=== PATIENT | female | born 1990 | race Caucasian/White ===

== ENCOUNTER 2019-02-12 09:23 | Inpatient (IN) | payer MEDICAID ==
[2019-02-12] MEDS ORDERED: CARBOPROST 250 MCG INJ IM (11:30)
[2019-02-12] MEDS ORDERED: MISOPROSTOL 200 MCG TAB PR (11:30)
[2019-02-12] MEDS ORDERED: OXYTOCIN 30 UNITS/LR 500 ML IV (11:30)
[2019-02-12] MEDS ORDERED: BUTORPHANOL 2 MG INJ IV (11:30)
[2019-02-12 12:43] LABS: ADD MAN DIFF? NO
[2019-02-12 12:51] LABS: WHITE BLOOD COUNT 8.8 10^3/ul (4.8-10.8)
[2019-02-12 12:51] LABS: BASOPHILS % 0.2 % (0.0-2.0); EOSINOPHILS % 0.1 % (0.0-7.0); HEMATOCRIT 37.3 % (37.0-47.0); HEMOGLOBIN 12.8 g/dl (12.0-16.0); LYMPHOCYTES # 1.9 10^3/ul (0.8-2.9); LYMPHOCYTES % 21.9 % (15.0-51.0); MEAN CORPUSCULAR HEMOGLOBIN 30.4 pg (29.0-33.0); MEAN CORPUSCULAR HGB CONC 34.3 g/dl (32.0-37.0); MEAN CORPUSCULAR VOLUME 88.6 fl (82.0-101.0); MEAN PLATELET VOLUME 11.2 fl (7.4-10.4); MONOCYTE # 0.5 10^3/ul (0.3-0.9); MONOCYTES % 5.9 % (0.0-11.0); NEUTROPHIL # 6.3 10^3/ul (1.6-7.5); NEUTROPHILS % 71.2 % (39.0-77.0); PLATELET COUNT 207 10^3/UL (140-415); RED BLOOD COUNT 4.21 10^6/ul (4.20-5.40); RED CELL DISTRIBUTION WIDTH 13.5 % (11.5-14.5)
[2019-02-12] MEDS: LACTATED RINGER'S 1,000 ML IV ×2 (12:52→21:21)
[2019-02-12 13:12] LABS: INR 0.93; PROTIME 12.6 Sec (11.9-14.9)
[2019-02-12 13:13] LABS: PARTIAL THROMBOPLASTIN TIME 27.8 Sec (23.0-35.0)
[2019-02-12] MEDS: MISOPROSTOL 50 MCG CAPSULE PO ×2 (14:26→18:35)
[2019-02-12] MEDS: AMPICILLIN 2 GM/NS (PMX) 100 ML IV (14:26)
[2019-02-12 16:21] LABS: HEPATITIS B SURFACE ANTIGEN NEGATIVE (NEGATIVE)
[2019-02-12] MEDS: AMPICILLIN 1 GM/NS (PMX) 50 ML IV ×2 (18:27→22:28)
[2019-02-12 20:42] LABS: RAPID PLASMA REAGIN NONREACTIVE (NR)
[2019-02-13] MEDS: BUTORPHANOL 2 MG INJ IV (00:35)
[2019-02-13] MEDS: MISOPROSTOL 50 MCG CAPSULE PO ×6 (03:00→19:48)
[2019-02-13] MEDS: AMPICILLIN 1 GM/NS (PMX) 50 ML IV ×7 (03:00→22:45)
[2019-02-13] MEDS: LACTATED RINGER'S 1,000 ML IV ×3 (06:24→19:24)
[2019-02-13] MEDS ORDERED: LACTATED RINGER'S 1,000 ML IV (19:48)
[2019-02-14] MEDS: OXYTOCIN 30 UNITS/LR 500 ML IV ×4 (01:48→15:23)
[2019-02-14] MEDS: LACTATED RINGER'S 1,000 ML IV (02:37)
[2019-02-14] MEDS: AMPICILLIN 1 GM/NS (PMX) 50 ML IV ×2 (02:38→06:45)
[2019-02-14] MEDS: MINERAL OIL LIGHT 10 ML VIAL TOP (09:00)
[2019-02-14] MEDS: LIDOCAINE 1% (MPF) 30 ML INJ INJ (10:05)
[2019-02-14] MEDS: METHYLERGONOVINE 0.2 MG INJ IM (10:09)
[2019-02-14] MEDS: IBUPROFEN 600 MG TAB PO ×3 (11:47→23:56)
[2019-02-14] MEDS ORDERED: MAGNESIUM HYDROXIDE 30ML CUP PO (13:30)
[2019-02-14] MEDS: DEXTROSE 5%-LR 1,000 ML IV (14:29)
[2019-02-14] MEDS: LACTATED RINGER'S 1,000 ML IV* (14:29)
[2019-02-14] MEDS ORDERED: MISOPROSTOL 200 MCG TAB PR (14:30)
[2019-02-14] MEDS ORDERED: CARBOPROST 250 MCG INJ IM (14:30)
[2019-02-14] MEDS ORDERED: DIPHENHYDRAMINE 50 MG INJ IV (14:30)
[2019-02-14] MEDS ORDERED: ACETAMINOPHEN 325 MG TAB PO (14:30)
[2019-02-14] MEDS ORDERED: SENNA/DOCUSATE NA (8.6MG/50MG) TAB PO (14:30)
[2019-02-14] MEDS ORDERED: ONDANSETRON 4 MG INJ IV (14:30)
[2019-02-14] MEDS ORDERED: OXYTOCIN 30 UNITS/LR 500 ML IV (14:30)
[2019-02-14] MEDS ORDERED: ZOLPIDEM 5 MG TAB PO (14:30)
[2019-02-14] MEDS ORDERED: METHYLERGONOVINE 0.2 MG INJ IM (14:30)
[2019-02-14] MEDS: WITCH HAZEL/GLYCERIN PAD PR (15:22)
[2019-02-14] MEDS: BENZOCAINE 20% 56 ML SPRAY TOP (15:22)
[2019-02-14] MEDS: DIBUCAINE 1% 30 GM OINT TOP (15:24)
[2019-02-14] MEDS: LANOLIN HPA 1 PKT TOP (15:24)
[2019-02-15] MEDS: IBUPROFEN 600 MG TAB PO ×3 (06:00→17:46)
[2019-02-15 08:56] LABS: ADD MAN DIFF? NO
[2019-02-15 09:01] LABS: BASOPHILS % 0.3 % (0.0-2.0); EOSINOPHILS % 0.3 % (0.0-7.0); HEMATOCRIT 31.8 % (37.0-47.0); HEMOGLOBIN 10.8 g/dl (12.0-16.0); LYMPHOCYTES # 1.8 10^3/ul (0.8-2.9); LYMPHOCYTES % 15.2 % (15.0-51.0); MEAN CORPUSCULAR HEMOGLOBIN 30.1 pg (29.0-33.0); MEAN CORPUSCULAR VOLUME 88.6 fl (82.0-101.0); MEAN PLATELET VOLUME 10.9 fl (7.4-10.4); MONOCYTE # 0.8 10^3/ul (0.3-0.9); MONOCYTES % 7.1 % (0.0-11.0); NEUTROPHIL # 8.9 10^3/ul (1.6-7.5); NEUTROPHILS % 76.8 % (39.0-77.0); PLATELET COUNT 189 10^3/UL (140-415); RED BLOOD COUNT 3.59 10^6/ul (4.20-5.40); RED CELL DISTRIBUTION WIDTH 13.6 % (11.5-14.5)
[2019-02-15 09:01] LABS: WHITE BLOOD COUNT 11.6 10^3/ul (4.8-10.8)
[2019-02-15] MEDS: OXYCODONE/ASPIRIN (4.88/325) TAB PO (15:20)
[2019-02-16] MEDS: IBUPROFEN 600 MG TAB PO ×3 (00:03→11:31)
[2019-02-16] MEDS: MEASLES,MUMPS,RUBELLA VACCINE INJ SC* (09:00)
[2019-02-16] MEDS: DIPHTH/TET/ACEL PERTUSS (ADULT) 0.5 ML VIAL IM* (09:00)
[2019-02-16] MEDS: WITCH HAZEL/GLYCERIN PAD PR (11:35)
[2019-02-16] MEDS: BENZOCAINE 20% 56 ML SPRAY TOP (11:35)
== END 2019-02-16 15:51 | disposition home or self-care (01) | DRG 807 ==
LOC: OBT 09:23 → PP1 02-14 12:36 → L-D 09:23 → OBT 11:20 → L-D 11:20
PROVIDERS: Obstetrics & Gynecology
PROC: 10D07Z6 Extraction of Products of Conception, Vacuum, Via Natural or Artificial Opening (ICD-10-PCS; principal; 2019-02-14)
PROC: 0W8NXZZ Division of Female Perineum, External Approach (ICD-10-PCS; 2019-02-14)
PROC: 0HQ9XZZ Repair Perineum Skin, External Approach (ICD-10-PCS; 2019-02-14)
PROC: 3E033VJ Introduction of Other Hormone into Peripheral Vein, Percutaneous Approach (ICD-10-PCS; 2019-02-14)
DX: O36.8130 Decreased fetal movements, third trimester, not applicable or unspecified (principal); O75.81 Maternal exhaustion complicating labor and delivery; O70.0 First degree perineal laceration during delivery; O69.81X0 Labor and delivery complicated by cord around neck, without compression, not applicable or unspecified; O99.824 Streptococcus B carrier state complicating childbirth; Z3A.40 40 weeks gestation of pregnancy; Z37.0 Single live birth
CPT/HCPCS: 76815; 76818; 85025; 85610; 85730; 86592; 86850; 86900; 86901; 87340; 99464